=== PATIENT | female | born 1940 | race Caucasian/White ===

== ENCOUNTER 2023-01-21 09:54 | Inpatient (IN) | payer OTHER ==
[2023-01-21] MEDS ORDERED: Ondansetron ODT 4 MG TAB SL PRN (14:10)
[2023-01-21] MEDS ORDERED: Acetaminophen 325 MG TAB PO PRN (14:10)
[2023-01-21] MEDS ORDERED: Senokot S 8.6-50 MG TAB PO PRN (14:10)
[2023-01-21] MEDS ORDERED: Bisacodyl 5 MG TAB PO PRN (14:10)
[2023-01-21] MEDS ORDERED: Glucagon 1 MG/ML KIT IM PRN (14:12)
[2023-01-21] MEDS ORDERED: HumaLOG 300 UNITS/3 ML VIAL SC PRN (14:12)
[2023-01-21] MEDS ORDERED: Dextrose 50% Abboject 50 ML SYRINGE SLOW IVP PRN (14:12)
[2023-01-21 17:15] VITALS: BMI 36.5
[2023-01-21] MEDS: HumaLOG 300 UNITS/3 ML VIAL SC PRN (17:36)
[2023-01-21] MEDS: metFORMIN 500 MG TAB PO SCH (17:38)
[2023-01-21] MEDS ORDERED: FLU VACC QS2023(65UP)/MF59C/PF 60 MCG/0.5 ML SYRINGE IM ONE (18:00)
[2023-01-21] MEDS: Atenolol 25 MG TAB PO SCH (21:15)
[2023-01-21] MEDS: Famotidine 20 MG TAB PO SCH (21:15)
[2023-01-22] MEDS: LevoFLOXacin 750 MG TAB PO SCH (05:38)
[2023-01-22] MEDS: Famotidine 20 MG TAB PO SCH ×2 (08:37→20:46)
[2023-01-22] MEDS: Losartan Potassium 50 MG TAB PO SCH (08:37)
[2023-01-22] MEDS: metFORMIN 500 MG TAB PO SCH ×2 (08:37→16:34)
[2023-01-22] MEDS: Atenolol 25 MG TAB PO SCH ×2 (08:38→20:46)
[2023-01-22] MEDS: Hydrochlorothiazide 25 MG TAB PO SCH (08:40)
[2023-01-22] MEDS: Lantus 1000 UNITS/10 ML VIAL SC SCH (08:40)
[2023-01-22 09:42] LABS: #Basophils 0.1 thou/uL (0.0-0.2); #Eosinphils 0.3 thou/uL (0.0-0.7); #Lymphocytes 1.7 thou/uL (1.20-3.40); #Monocytes 0.6 thou/uL (0.11-0.59); #Neutrophils 7.2 thou/uL (1.40-6.50); %Basophils 0.6 % (0.0-1.0); %Eosinophils 3.1 % (0.0-10.0); %Lymphocytes 17.2 % (21.0-51.0); %Monocytes 6.2 % (0.0-10.0); %Neutrophils 72.9 % (42.0-75.0); Hematocrit 29.4 % (36.0-47.0); Hemoglobin 9.4 g/dL (12.0-16.0); Mean Corpuscular HGB CONC 31.8 g/dL (32.0-36.0); Mean Corpuscular Hemoglobin 28.8 pg (27.0-31.0); Mean Corpuscular Volume 90.4 fl (78.0-98.0); Mean Platelet Volume 7.6 fL (7.4-10.4); Platelet Count 181 10x3/uL (130-400); RBC Distribution Width 14.3 % (11.5-14.5); Red Blood Cell (RBC) Count 3.26 mill/uL (4.20-5.40); White Blood Cell (WBC) Count 9.8 10x3/uL (4.8-10.8)
[2023-01-22 10:03] LABS: ALT (SGPT) 12 U/L (8-55); AST (SGOT) 13 U/L (5-34); Albumin 2.1 g/dL (3.4-4.8); Alkaline Phosphatase 602 U/L (40-110); Anion Gap 14 mmol/L (10-20); BUN (Urea Nitrogen) 14 mg/dL (9.8-20.1); Bilirubin, Total 0.9 mg/dL (0.2-1.2); Calc. Creatinine Clearance 91 mL/min (70-130); Carbon Dioxide 22 mmol/L (23-31); Chloride 107 mmol/L (98-107); Estimated GFR 83; Globulin 2.7 g/dL (2.4-3.5); Glucose 155 mg/dL (83-110); Potassium 4.5 mmol/L (3.5-5.1); Protein, Total 4.8 g/dL (5.8-8.1); Sodium 138 mmol/L (136-145)
[2023-01-22] MEDS: HumaLOG 300 UNITS/3 ML VIAL SC PRN (11:40)
[2023-01-23] MEDS: LevoFLOXacin 750 MG TAB PO SCH (06:07)
[2023-01-23] MEDS ORDERED: Furosemide 20 MG TAB PO SCH (09:00)
[2023-01-23] MEDS: Losartan Potassium 50 MG TAB PO SCH (09:20)
[2023-01-23] MEDS: Atenolol 25 MG TAB PO SCH ×2 (09:20→20:48)
[2023-01-23] MEDS: metFORMIN 500 MG TAB PO SCH ×2 (09:24→17:07)
[2023-01-23] MEDS: Hydrochlorothiazide 25 MG TAB PO SCH (09:25)
[2023-01-23] MEDS: Famotidine 20 MG TAB PO SCH ×2 (09:25→20:48)
[2023-01-23] MEDS: Lantus 1000 UNITS/10 ML VIAL SC SCH (09:26)
[2023-01-23] MEDS: Loperamide HCl 2 MG CAP PO PRN (09:37)
[2023-01-23] MEDS: Acetaminophen 325 MG TAB PO PRN (14:14)
[2023-01-23] MEDS: HumaLOG 300 UNITS/3 ML VIAL SC PRN (17:07)
[2023-01-23 17:28] LABS: Gamma GT (GGT) 129 U/L (9-36); Iron 111 ug/dL (50-170); Iron Binding Capacity, Total 153 mcg/dL (265-497)
[2023-01-24] MEDS: LevoFLOXacin 750 MG TAB PO SCH (06:10)
[2023-01-24] MEDS: Famotidine 20 MG TAB PO SCH ×2 (08:18→20:24)
[2023-01-24] MEDS: metFORMIN 500 MG TAB PO SCH ×2 (08:18→17:11)
[2023-01-24] MEDS: Losartan Potassium 50 MG TAB PO SCH (08:19)
[2023-01-24] MEDS: Atenolol 25 MG TAB PO SCH ×2 (08:19→20:24)
[2023-01-24] MEDS: Hydrochlorothiazide 25 MG TAB PO SCH (08:20)
[2023-01-24] MEDS: Lantus 1000 UNITS/10 ML VIAL SC SCH (08:22)
[2023-01-24] MEDS: Acetaminophen 325 MG TAB PO PRN ×2 (10:10→15:18)
[2023-01-24] MEDS ORDERED: Furosemide 20 MG TAB PO SCH (11:00)
[2023-01-25] MEDS: LevoFLOXacin 750 MG TAB PO SCH (05:35)
[2023-01-25 06:04] LABS: Anion Gap 15 mmol/L (10-20); BUN (Urea Nitrogen) 13 mg/dL (9.8-20.1); Calc. Creatinine Clearance 78 mL/min (70-130); Calcium 8.2 mg/dL (7.8-10.44); Carbon Dioxide 23 mmol/L (23-31); Chloride 104 mmol/L (98-107); Estimated GFR 69; Glucose 113 mg/dL (83-110); Potassium 3.8 mmol/L (3.5-5.1); Sodium 138 mmol/L (136-145)
[2023-01-25] MEDS: Lantus 1000 UNITS/10 ML VIAL SC SCH (08:10)
[2023-01-25] MEDS: Famotidine 20 MG TAB PO SCH ×2 (08:11→20:12)
[2023-01-25] MEDS: Losartan Potassium 50 MG TAB PO SCH (08:11)
[2023-01-25] MEDS: metFORMIN 500 MG TAB PO SCH ×2 (08:11→17:53)
[2023-01-25] MEDS: Hydrochlorothiazide 25 MG TAB PO SCH (08:12)
[2023-01-25] MEDS: Atenolol 25 MG TAB PO SCH ×2 (08:13→20:12)
[2023-01-25] MEDS ORDERED: Furosemide 20 MG TAB PO SCH (08:30)
[2023-01-25] MEDS: Acetaminophen 325 MG TAB PO PRN (21:06)
[2023-01-26] MEDS: LevoFLOXacin 750 MG TAB PO SCH (06:24)
[2023-01-26] MEDS: Acetaminophen 325 MG TAB PO PRN ×4 (06:52→20:23)
[2023-01-26] MEDS: Loperamide HCl 2 MG CAP PO PRN ×2 (08:21→17:24)
[2023-01-26] MEDS: Atenolol 25 MG TAB PO SCH ×2 (08:21→20:24)
[2023-01-26] MEDS: Hydrochlorothiazide 25 MG TAB PO SCH (08:22)
[2023-01-26] MEDS: Losartan Potassium 50 MG TAB PO SCH (08:23)
[2023-01-26] MEDS: Famotidine 20 MG TAB PO SCH ×2 (08:23→20:24)
[2023-01-26] MEDS: metFORMIN 500 MG TAB PO SCH ×2 (08:23→17:25)
[2023-01-26] MEDS: Lantus 1000 UNITS/10 ML VIAL SC SCH (08:24)
[2023-01-26] MEDS ORDERED: Furosemide 20 MG TAB PO SCH (12:30)
[2023-01-27] MEDS: LevoFLOXacin 750 MG TAB PO SCH (06:11)
[2023-01-27] MEDS: Acetaminophen 325 MG TAB PO PRN ×2 (06:11→20:17)
[2023-01-27] MEDS: Famotidine 20 MG TAB PO SCH ×2 (08:40→20:18)
[2023-01-27] MEDS: Atenolol 25 MG TAB PO SCH ×2 (08:40→20:18)
[2023-01-27] MEDS: metFORMIN 500 MG TAB PO SCH ×2 (08:40→17:50)
[2023-01-27] MEDS: Hydrochlorothiazide 25 MG TAB PO SCH (08:41)
[2023-01-27] MEDS: Losartan Potassium 50 MG TAB PO SCH (08:42)
[2023-01-27] MEDS: Lantus 1000 UNITS/10 ML VIAL SC SCH (08:42)
[2023-01-27] MEDS ORDERED: Furosemide 20 MG TAB PO SCH (10:00)
[2023-01-28] MEDS: Acetaminophen 325 MG TAB PO PRN ×2 (06:08→20:28)
[2023-01-28] MEDS: LevoFLOXacin 750 MG TAB PO SCH (06:09)
[2023-01-28 06:10] LABS: #Basophils 0.1 thou/uL (0.0-0.2); #Eosinphils 0.3 thou/uL (0.0-0.7); #Lymphocytes 1.9 thou/uL (1.20-3.40); #Monocytes 0.5 thou/uL (0.11-0.59); #Neutrophils 9.8 thou/uL (1.40-6.50); %Basophils 0.7 % (0.0-1.0); %Eosinophils 2.4 % (0.0-10.0); %Lymphocytes 14.8 % (21.0-51.0); %Monocytes 4.2 % (0.0-10.0); %Neutrophils 77.8 % (42.0-75.0); Hematocrit 23.2 % (36.0-47.0); Hemoglobin 7.7 g/dL (12.0-16.0); Mean Corpuscular Hemoglobin 29.9 pg (27.0-31.0); Mean Corpuscular Volume 90.7 fl (78.0-98.0); Mean Platelet Volume 6.8 fL (7.4-10.4); Platelet Count 297 10x3/uL (130-400); RBC Distribution Width 16.1 % (11.5-14.5); Red Blood Cell (RBC) Count 2.56 mill/uL (4.20-5.40); White Blood Cell (WBC) Count 12.6 10x3/uL (4.8-10.8)
[2023-01-28 06:21] LABS: ALT (SGPT) 8 U/L (8-55); AST (SGOT) 13 U/L (5-34); Albumin 2.2 g/dL (3.4-4.8); Anion Gap 14 mmol/L (10-20); BUN (Urea Nitrogen) 17 mg/dL (9.8-20.1); Bilirubin, Total 0.5 mg/dL (0.2-1.2); Calc. Creatinine Clearance 70 mL/min (70-130); Calcium 8.2 mg/dL (7.8-10.44); Carbon Dioxide 26 mmol/L (23-31); Chloride 101 mmol/L (98-107); Estimated GFR 61; Globulin 2.1 g/dL (2.4-3.5); Glucose 146 mg/dL (83-110); Potassium 3.5 mmol/L (3.5-5.1); Protein, Total 4.3 g/dL (5.8-8.1); Sodium 137 mmol/L (136-145)
[2023-01-28 06:39] LABS: Alkaline Phosphatase 87 U/L (40-110)
[2023-01-28] MEDS: Losartan Potassium 50 MG TAB PO SCH (07:59)
[2023-01-28] MEDS: Atenolol 25 MG TAB PO SCH ×2 (07:59→20:28)
[2023-01-28] MEDS: metFORMIN 500 MG TAB PO SCH ×2 (07:59→16:06)
[2023-01-28] MEDS: Famotidine 20 MG TAB PO SCH ×2 (07:59→20:28)
[2023-01-28] MEDS: Hydrochlorothiazide 25 MG TAB PO SCH (08:00)
[2023-01-28] MEDS: Lantus 1000 UNITS/10 ML VIAL SC SCH (08:01)
[2023-01-28] MEDS: HumaLOG 300 UNITS/3 ML VIAL SC PRN (11:01)
[2023-01-28] MEDS ORDERED: Furosemide 20 MG TAB PO SCH (16:00)
[2023-01-28] MEDS: Simethicone Chewable 80 MG TAB PO PRN (17:43)
[2023-01-29] MEDS: LevoFLOXacin 750 MG TAB PO SCH (05:26)
[2023-01-29 06:03] LABS: Hematocrit 28.1 % (36.0-47.0); Hemoglobin 9.1 g/dL (12.0-16.0); Manual Diff?? NO; Mean Corpuscular HGB CONC 32.5 g/dL (32.0-36.0); Mean Corpuscular Hemoglobin 29.8 pg (27.0-31.0); Mean Corpuscular Volume 91.8 fl (78.0-98.0); Platelet Count 395 10x3/uL (130-400); RBC Distribution Width 16.9 % (11.5-14.5); Red Blood Cell (RBC) Count 3.06 mill/uL (4.20-5.40)
[2023-01-29 06:04] LABS: #Basophils 0.1 thou/uL (0.0-0.2); #Eosinphils 0.4 thou/uL (0.0-0.7); #Lymphocytes 2.1 thou/uL (1.20-3.40); #Monocytes 0.6 thou/uL (0.11-0.59); #Neutrophils 9.9 thou/uL (1.40-6.50); %Basophils 0.5 % (0.0-1.0); %Eosinophils 2.8 % (0.0-10.0); %Monocytes 4.5 % (0.0-10.0); %Neutrophils 76.2 % (42.0-75.0)
[2023-01-29 06:12] LABS: Anion Gap 17 mmol/L (10-20); BUN (Urea Nitrogen) 23 mg/dL (9.8-20.1); Calc. Creatinine Clearance 60 mL/min (70-130); Calcium 8.7 mg/dL (7.8-10.44); Carbon Dioxide 26 mmol/L (23-31); Chloride 98 mmol/L (98-107); Estimated GFR 51; Glucose 138 mg/dL (83-110); Potassium 3.7 mmol/L (3.5-5.1); Sodium 137 mmol/L (136-145)
[2023-01-29] MEDS: Atenolol 25 MG TAB PO SCH ×2 (07:59→20:37)
[2023-01-29] MEDS: metFORMIN 500 MG TAB PO SCH ×2 (07:59→16:07)
[2023-01-29] MEDS: Famotidine 20 MG TAB PO SCH ×2 (07:59→20:37)
[2023-01-29] MEDS: Hydrochlorothiazide 25 MG TAB PO SCH (07:59)
[2023-01-29] MEDS: Lantus 1000 UNITS/10 ML VIAL SC SCH (08:01)
[2023-01-29] MEDS: Losartan Potassium 50 MG TAB PO SCH (08:04)
[2023-01-29] MEDS: HumaLOG 300 UNITS/3 ML VIAL SC PRN (11:10)
[2023-01-29] MEDS: Loperamide HCl 2 MG CAP PO PRN ×2 (12:57→20:38)
[2023-01-29] MEDS: Simethicone Chewable 80 MG TAB PO PRN (16:07)
[2023-01-29] MEDS ORDERED: Furosemide 20 MG TAB PO SCH (17:30)
[2023-01-29] MEDS: Acetaminophen 325 MG TAB PO PRN (20:38)
[2023-01-30] MEDS: LevoFLOXacin 750 MG TAB PO SCH (05:13)
[2023-01-30 06:06] LABS: %Neutrophils 71.9 % (42.0-75.0); Hematocrit 23.9 % (36.0-47.0); Hemoglobin 8.1 g/dL (12.0-16.0); Mean Corpuscular HGB CONC 33.8 g/dL (32.0-36.0); Mean Corpuscular Hemoglobin 30.4 pg (27.0-31.0); Mean Corpuscular Volume 89.8 fl (78.0-98.0); Mean Platelet Volume 7.1 fL (7.4-10.4); Platelet Count 283 10x3/uL (130-400); RBC Distribution Width 16.4 % (11.5-14.5); Red Blood Cell (RBC) Count 2.67 mill/uL (4.20-5.40); White Blood Cell (WBC) Count 9.3 10x3/uL (4.8-10.8)
[2023-01-30 06:07] LABS: #Basophils 0.1 thou/uL (0.0-0.2); #Eosinphils 0.4 thou/uL (0.0-0.7); #Lymphocytes 1.6 thou/uL (1.20-3.40); #Monocytes 0.6 thou/uL (0.11-0.59); #Neutrophils 6.7 thou/uL (1.40-6.50); %Basophils 0.6 % (0.0-1.0); %Eosinophils 3.8 % (0.0-10.0); %Lymphocytes 17.2 % (21.0-51.0); %Monocytes 6.4 % (0.0-10.0)
[2023-01-30 06:16] LABS: Anion Gap 15 mmol/L (10-20); BUN (Urea Nitrogen) 24 mg/dL (9.8-20.1); Calc. Creatinine Clearance 60 mL/min (70-130); Calcium 8.6 mg/dL (7.8-10.44); Carbon Dioxide 27 mmol/L (23-31); Chloride 98 mmol/L (98-107); Estimated GFR 50; Glucose 99 mg/dL (83-110); Potassium 3.4 mmol/L (3.5-5.1); Sodium 137 mmol/L (136-145)
[2023-01-30] MEDS: Famotidine 20 MG TAB PO SCH ×2 (08:21→20:26)
[2023-01-30] MEDS: Loperamide HCl 2 MG CAP PO PRN ×2 (08:22→17:18)
[2023-01-30] MEDS: Losartan Potassium 50 MG TAB PO SCH (08:22)
[2023-01-30] MEDS: Atenolol 25 MG TAB PO SCH ×2 (08:22→20:26)
[2023-01-30] MEDS: metFORMIN 500 MG TAB PO SCH ×2 (08:22→17:18)
[2023-01-30] MEDS: Hydrochlorothiazide 25 MG TAB PO SCH (08:23)
[2023-01-30] MEDS: Furosemide 40 MG TAB PO SCH (08:24)
[2023-01-30] MEDS: Lantus 1000 UNITS/10 ML VIAL SC SCH (08:25)
[2023-01-30] MEDS: Diphenoxylate HCl/Atropine Tablet PO PRN (18:18)
[2023-01-30] MEDS: Potassium Chloride 20 MEQ TAB PO SCH (20:58)
[2023-01-31 05:42] LABS: #Basophils 0.1 thou/uL (0.0-0.2); #Eosinphils 0.3 thou/uL (0.0-0.7); #Lymphocytes 1.5 thou/uL (1.20-3.40); #Monocytes 0.6 thou/uL (0.11-0.59); #Neutrophils 4.9 thou/uL (1.40-6.50); %Basophils 0.9 % (0.0-1.0); %Eosinophils 3.5 % (0.0-10.0); %Lymphocytes 20.1 % (21.0-51.0); %Monocytes 8.2 % (0.0-10.0); %Neutrophils 67.4 % (42.0-75.0); Hemoglobin 7.7 g/dL (12.0-16.0); Mean Corpuscular HGB CONC 33.6 g/dL (32.0-36.0); Mean Corpuscular Hemoglobin 30.2 pg (27.0-31.0); Mean Corpuscular Volume 89.9 fl (78.0-98.0); Mean Platelet Volume 6.7 fL (7.4-10.4); Platelet Count 240 10x3/uL (130-400); Red Blood Cell (RBC) Count 2.56 mill/uL (4.20-5.40); White Blood Cell (WBC) Count 7.2 10x3/uL (4.8-10.8)
[2023-01-31 05:54] LABS: Anion Gap 14 mmol/L (10-20); BUN (Urea Nitrogen) 25 mg/dL (9.8-20.1); Calc. Creatinine Clearance 60 mL/min (70-130); Calcium 8.2 mg/dL (7.8-10.44); Carbon Dioxide 28 mmol/L (23-31); Chloride 100 mmol/L (98-107); Estimated GFR 51; Glucose 92 mg/dL (83-110); Potassium 3.5 mmol/L (3.5-5.1); Sodium 138 mmol/L (136-145)
[2023-01-31] MEDS: Diphenoxylate HCl/Atropine Tablet PO PRN ×2 (07:35→13:29)
[2023-01-31] MEDS: metFORMIN 500 MG TAB PO SCH ×2 (07:36→18:09)
[2023-01-31] MEDS: Famotidine 20 MG TAB PO SCH ×2 (07:37→21:07)
[2023-01-31] MEDS: Atenolol 25 MG TAB PO SCH ×2 (07:37→21:07)
[2023-01-31] MEDS: Losartan Potassium 50 MG TAB PO SCH (07:37)
[2023-01-31] MEDS: Furosemide 40 MG TAB PO SCH (07:37)
[2023-01-31] MEDS: Hydrochlorothiazide 25 MG TAB PO SCH (07:38)
[2023-01-31] MEDS: Lantus 1000 UNITS/10 ML VIAL SC SCH (07:39)
[2023-01-31] MEDS: Loperamide HCl 2 MG CAP PO PRN (18:09)
[2023-01-31] MEDS: Potassium Chloride 20 MEQ TAB PO SCH (22:43)
[2023-02-01] MEDS: Loperamide HCl 2 MG CAP PO PRN ×2 (03:56→07:15)
[2023-02-01] MEDS: Diphenoxylate HCl/Atropine Tablet PO PRN (07:15)
[2023-02-01] MEDS: Furosemide 40 MG TAB PO SCH (07:26)
[2023-02-01] MEDS: metFORMIN 500 MG TAB PO SCH ×2 (08:24→17:39)
[2023-02-01] MEDS: Losartan Potassium 50 MG TAB PO SCH (08:25)
[2023-02-01] MEDS: Hydrochlorothiazide 25 MG TAB PO SCH (08:25)
[2023-02-01] MEDS: Famotidine 20 MG TAB PO SCH ×2 (08:26→21:10)
[2023-02-01] MEDS: Atenolol 25 MG TAB PO SCH ×2 (08:26→21:10)
[2023-02-01] MEDS: Lantus 1000 UNITS/10 ML VIAL SC SCH (08:27)
[2023-02-01] MEDS ORDERED: Metamucil PACK PO SCH (11:30)
[2023-02-01] MEDS ORDERED: Saccharomyces boulardii 250 MG CAP PO SCH (11:30)
[2023-02-01] MEDS: HumaLOG 300 UNITS/3 ML VIAL SC PRN (12:05)
[2023-02-02] MEDS: Furosemide 40 MG TAB PO SCH (07:45)
[2023-02-02] MEDS: metFORMIN 500 MG TAB PO SCH ×2 (07:45→16:52)
[2023-02-02] MEDS: Hydrochlorothiazide 25 MG TAB PO SCH (08:09)
[2023-02-02] MEDS: Atenolol 25 MG TAB PO SCH ×2 (08:09→20:52)
[2023-02-02] MEDS: Famotidine 20 MG TAB PO SCH ×2 (08:09→20:52)
[2023-02-02] MEDS: Saccharomyces boulardii 250 MG CAP PO SCH (08:09)
[2023-02-02] MEDS: Metamucil PACK PO SCH (08:10)
[2023-02-02] MEDS: Lantus 1000 UNITS/10 ML VIAL SC SCH (08:14)
[2023-02-02] MEDS: Losartan Potassium 50 MG TAB PO SCH (08:16)
[2023-02-02] MEDS: HumaLOG 300 UNITS/3 ML VIAL SC PRN (11:29)
[2023-02-02] MEDS ORDERED: Furosemide 20 MG TAB PO SCH (13:00)
[2023-02-02] MEDS: Acetaminophen 325 MG TAB PO PRN (20:53)
[2023-02-03 04:47] LABS: #Basophils 0.1 thou/uL (0.0-0.2); #Eosinphils 0.5 thou/uL (0.0-0.7); #Lymphocytes 1.6 thou/uL (1.20-3.40); #Monocytes 0.7 thou/uL (0.11-0.59); #Neutrophils 4.7 thou/uL (1.40-6.50); %Basophils 0.8 % (0.0-1.0); %Eosinophils 6.3 % (0.0-10.0); %Monocytes 9.5 % (0.0-10.0); %Neutrophils 62.4 % (42.0-75.0); Hematocrit 24.1 % (36.0-47.0); Hemoglobin 7.8 g/dL (12.0-16.0); Mean Corpuscular HGB CONC 32.2 g/dL (32.0-36.0); Mean Corpuscular Hemoglobin 29.7 pg (27.0-31.0); Mean Corpuscular Volume 92.2 fl (78.0-98.0); Mean Platelet Volume 7.3 fL (7.4-10.4); Platelet Count 239 10x3/uL (130-400); RBC Distribution Width 17.6 % (11.5-14.5); Red Blood Cell (RBC) Count 2.62 mill/uL (4.20-5.40); White Blood Cell (WBC) Count 7.5 10x3/uL (4.8-10.8)
[2023-02-03 05:01] LABS: Anion Gap 16 mmol/L (10-20); BUN (Urea Nitrogen) 29 mg/dL (9.8-20.1); Calc. Creatinine Clearance 60 mL/min (70-130); Calcium 8.4 mg/dL (7.8-10.44); Carbon Dioxide 27 mmol/L (23-31); Chloride 100 mmol/L (98-107); Estimated GFR 51; Glucose 74 mg/dL (83-110); Potassium 3.3 mmol/L (3.5-5.1); Sodium 140 mmol/L (136-145)
[2023-02-03] MEDS: Atenolol 25 MG TAB PO SCH ×2 (07:46→20:27)
[2023-02-03] MEDS: Saccharomyces boulardii 250 MG CAP PO SCH (07:47)
[2023-02-03] MEDS: Famotidine 20 MG TAB PO SCH ×2 (07:47→20:24)
[2023-02-03] MEDS: Metamucil PACK PO SCH (07:47)
[2023-02-03] MEDS: metFORMIN 500 MG TAB PO SCH ×2 (07:47→16:09)
[2023-02-03] MEDS: Furosemide 40 MG TAB PO SCH (07:47)
[2023-02-03] MEDS: Hydrochlorothiazide 25 MG TAB PO SCH (07:47)
[2023-02-03] MEDS: Lantus 1000 UNITS/10 ML VIAL SC SCH (07:51)
[2023-02-03] MEDS: Losartan Potassium 50 MG TAB PO SCH (07:52)
[2023-02-03] MEDS ORDERED: Potassium Chloride 20 MEQ TAB PO SCH (09:30)
[2023-02-04] MEDS: Furosemide 40 MG TAB PO SCH (08:15)
[2023-02-04] MEDS: Hydrochlorothiazide 25 MG TAB PO SCH (08:16)
[2023-02-04] MEDS: Famotidine 20 MG TAB PO SCH ×2 (08:16→21:05)
[2023-02-04] MEDS: Potassium Chloride 20 MEQ TAB PO SCH (08:17)
[2023-02-04] MEDS: metFORMIN 500 MG TAB PO SCH ×2 (08:17→17:15)
[2023-02-04] MEDS: Atenolol 25 MG TAB PO SCH ×2 (08:17→21:05)
[2023-02-04] MEDS: Losartan Potassium 50 MG TAB PO SCH (08:17)
[2023-02-04] MEDS: Metamucil PACK PO SCH (08:18)
[2023-02-04] MEDS: Lantus 1000 UNITS/10 ML VIAL SC SCH (08:18)
[2023-02-04] MEDS: Saccharomyces boulardii 250 MG CAP PO SCH (08:18)
[2023-02-04] MEDS: HumaLOG 300 UNITS/3 ML VIAL SC PRN (11:46)
[2023-02-05 07:19] VITALS: BP 110/55; TEMP 97.8
[2023-02-05] MEDS: Saccharomyces boulardii 250 MG CAP PO SCH (08:23)
[2023-02-05] MEDS: Furosemide 40 MG TAB PO SCH (08:24)
[2023-02-05] MEDS: metFORMIN 500 MG TAB PO SCH (08:24)
[2023-02-05] MEDS: Hydrochlorothiazide 25 MG TAB PO SCH (08:24)
[2023-02-05] MEDS: Losartan Potassium 50 MG TAB PO SCH (08:24)
[2023-02-05] MEDS: Potassium Chloride 20 MEQ TAB PO SCH (08:26)
[2023-02-05] MEDS: Famotidine 20 MG TAB PO SCH (08:27)
[2023-02-05] MEDS: Atenolol 25 MG TAB PO SCH (08:27)
[2023-02-05] MEDS: Metamucil PACK PO SCH (08:30)
[2023-02-05] MEDS: Lantus 1000 UNITS/10 ML VIAL SC SCH (08:32)
[2023-02-05] MEDS: HumaLOG 300 UNITS/3 ML VIAL SC PRN (11:44)
== END 2023-02-05 15:08 | disposition home health service (06) | DRG 948 ==
LOC: NAV ACUTE 14:07
PROVIDERS: ADMIT Family Medicine; ATTEND Family Medicine
DX: R53.81 Other malaise (principal); N39.0 Urinary tract infection, site not specified; L89.152 Pressure ulcer of sacral region, stage 2; L89.612 Pressure ulcer of right heel, stage 2; E11.9 Type 2 diabetes mellitus without complications; I10 Essential (primary) hypertension; M19.90 Unspecified osteoarthritis, unspecified site; E83.42 Hypomagnesemia; E83.51 Hypocalcemia; Z66 Do not resuscitate; K52.9 Noninfective gastroenteritis and colitis, unspecified; D64.9 Anemia, unspecified; E87.6 Hypokalemia; R60.0 Localized edema; R33.9 Retention of urine, unspecified; Z98.890 Other specified postprocedural states; Z82.49 Family history of ischemic heart disease and other diseases of the circulatory system; Z88.0 Allergy status to penicillin; Z88.1 Allergy status to other antibiotic agents; Z88.8 Allergy status to other drugs, medicaments and biological substances; Z79.4 Long term (current) use of insulin; Z79.84 Long term (current) use of oral hypoglycemic drugs; Z79.899 Other long term (current) drug therapy
CPT/HCPCS: 36415; 36416; 80048; 80053; 82728; 82977; 83540; 83550; 85025; 90471; 90694; 97602; G0008; J1815

== ENCOUNTER 2023-12-05 15:30 | Emergency (ER) | payer OTHER ==
[2023-12-05 16:38] LABS: Red Blood Cell (RBC) Count 3.17 mill/uL (4.20-5.40); White Blood Cell (WBC) Count 20.8 10x3/uL (4.8-10.8)
[2023-12-05 16:39] LABS: #Basophils 0.1 thou/uL (0.0-0.2); #Lymphocytes 1.4 thou/uL (1.20-3.40); #Monocytes 0.8 thou/uL (0.11-0.59); #Neutrophils 18.4 thou/uL (1.40-6.50); %Basophils 0.4 % (0.0-1.0); %Eosinophils 0.2 % (0.0-10.0); %Lymphocytes 6.8 % (21.0-51.0); %Neutrophils 88.6 % (42.0-75.0); Hematocrit 28.5 % (36.0-47.0); Manual Diff?? NO; Mean Corpuscular HGB CONC 31.3 g/dL (32.0-36.0); Mean Corpuscular Hemoglobin 28.2 pg (27.0-31.0); Mean Platelet Volume 6.7 fL (7.4-10.4); Platelet Count 462 10x3/uL (130-400); RBC Distribution Width 15.8 % (11.5-14.5)
[2023-12-05] MEDS ORDERED: Sodium Chloride 0.9% 1,000 ML ONE ×2 (16:46→17:31)
[2023-12-05 16:50] LABS: ALT (SGPT) 16 U/L (8-55); AST (SGOT) 18 U/L (5-34); Albumin 2.3 g/dL (3.4-4.8); Alkaline Phosphatase 1169 U/L (40-110); Anion Gap 22 mmol/L (10-20); BUN (Urea Nitrogen) 68 mg/dL (9.8-20.1); Bilirubin, Total 4.3 mg/dL (0.2-1.2); Calc. Creatinine Clearance 0 mL/min (70-130); Calcium 8.9 mg/dL (7.8-10.44); Carbon Dioxide 15 mmol/L (23-31); Chloride 98 mmol/L (98-107); Estimated GFR 22; Globulin 3.9 g/dL (2.4-3.5); Glucose 307 mg/dL (83-110); Potassium 3.7 mmol/L (3.5-5.1); Protein, Total 6.2 g/dL (5.8-8.1); Sodium 131 mmol/L (136-145)
[2023-12-05 16:52] LABS: Troponin I 0.189 ng/mL (< 0.028)
[2023-12-05 17:22] LABS: Base Excess-Venous -4.5 mmol/L (-2.0 to 3.0); Bicarbonate (HCO3v) 19.3 mmol/L (22.0-28.0); CO2 Tension (PvCO2) 30.3 mmHg (42.0-51.0); Calcium, Ionized 1.16 mmol/L (1.15-1.33); Chloride 100 mmol/L (98-107); Hemoglobin - Calc 10.1 g/dL (12.0-16.0); Potassium 3.4 mmol/L (3.5-5.1); Sodium 132 mmol/L (138-145); T. Carbon Dioxide 20.3 mmol/L (22.0-28.0); vO2 Saturation-calc 37.1 % (60.0-85.0)
[2023-12-05] MEDS ORDERED: Insulin Regular, Human 100 UNIT/ML 10 ML VIAL ONE (17:31)
[2023-12-05] MEDS ORDERED: INSULIN REGULAR IN 0.9 % NACL 100 ML ONE (18:01)
[2023-12-05 18:03] LABS: Magnesium 1.4 mg/dL (1.6-2.6)
[2023-12-05 18:04] LABS: Phosphorus 3.2 mg/dL (2.3-4.7)
[2023-12-05] MEDS ORDERED: D5 1/2 NS w/20 mEq KCL 1,000 ML ONE (19:45)
[2023-12-05] MEDS ORDERED: Dextrose 50% Abboject 50 ML SYRINGE ONE ×2 (19:45→22:41)
[2023-12-05 20:04] LABS: Troponin I 0.168 ng/mL (< 0.028)
[2023-12-05 21:04] LABS: Anion Gap 18 mmol/L (10-20); BUN (Urea Nitrogen) 64 mg/dL (9.8-20.1); Calc. Creatinine Clearance 0 mL/min (70-130); Carbon Dioxide 16 mmol/L (23-31); Chloride 103 mmol/L (98-107); Estimated GFR 24; Glucose 168 mg/dL (83-110); Potassium 2.9 mmol/L (3.5-5.1); Sodium 134 mmol/L (136-145)
[2023-12-06] MEDS ORDERED: D5 1/2 NS w/20 mEq KCL 1,000 ML ONE (00:14)
== END 2023-12-06 00:45 | disposition short-term general hospital (02) ==
LOC: NAV ERS 15:30
DX: E86.0 Dehydration (principal); N17.9 Acute kidney failure, unspecified; E11.10 Type 2 diabetes mellitus with ketoacidosis without coma; I10 Essential (primary) hypertension; Z79.84 Long term (current) use of oral hypoglycemic drugs
CPT/HCPCS: 36415; 36416; 71045; 80053; 82010; 82330; 82803; 83735; 83930; 84100; 84443; 84484; 85025; 93005; 94760; 96361; 96365; 96366; 96374; 96375; 96376; J1815; J3480; J7030; J7999